=== PATIENT | female | born 1990 | race Caucasian/White ===

== ENCOUNTER 2018-05-22 16:27 | Emergency (ER) | payer OTHER ==
[~2018-05-22] VITALS: Ht 167.6 cm; Wt 108.9 kg
[2018-05-22 16:41] VITALS: BP 131/78
[2018-05-22] MEDS ORDERED: METFORMIN HCL500 MG PO (16:44)
[2018-05-22] MEDS ORDERED: LABETALOL HCL100 MG PO (16:46)
[2018-05-22] MEDS ORDERED: NAPROSYN500 MG PO (16:58)
== END 2018-05-22 18:48 | disposition home or self-care (01) ==
LOC: ER 16:27
DX: S56.911A Strain of unspecified muscles, fascia and tendons at forearm level, right arm, initial encounter (principal); E11.9 Type 2 diabetes mellitus without complications; I10 Essential (primary) hypertension; W19.XXXA Unspecified fall, initial encounter; Y93.89 Activity, other specified; Y92.89 Other specified places as the place of occurrence of the external cause; Y99.0 Civilian activity done for income or pay